=== PATIENT | male | born 1970 | race Caucasian/White ===

== ENCOUNTER → 2016-10-26 | Outpatient (CLI) | payer OTHER ==
--- NOTE | 2016-10-26 08:56 | US ---
EXAMINATION TYPE: US abdomen complete DATE OF EXAM: 10/26/2016 COMPARISON: NONE CLINICAL HISTORY: R10.84 Generalized abdominal pain. Elevated LFT's EXAM MEASUREMENTS: Liver Length: 19.2 cm Gallbladder Wall: 0.3 cm CBD: 0.4 cm Spleen: 10.6 cm Right Kidney: 10.1 x 4.6 x 5.9 cm Left Kidney: 11.3 x 5.2 x 6.2 cm Pancreas: unable to view due to bowel gas Liver: difficult to penetrate and enlarged . Hyperechoic echotexture of the hepatic parenchyma seen diffusely, which limits evaluation for underlying masses. Gallbladder: wnl Evidence for sonographic Weaver's sign: no CBD: wnl Spleen: wnl Right Kidney: wnl Left Kidney: wnl Upper IVC: wnl Abd Aorta: limited views appear wnl The intrahepatic portion of the IVC and proximal abdominal aorta are within normal limits. There is no evidence of cholelithiasis. Common bile duct is unremarkable. The visualized portions of the gray creas are homogenous. The spleen is unremarkable. Kidneys are symmetric and free of hydronephrosis. No renal lesions are seen. IMPRESSION: 1. Diffuse hyperechoic hepatic echotexture, most commonly relating to underlying hepatic steatosis al though this can be seen in other hepatocellular disease. Correlation with serum laboratory values is recommended. 2. Nonvisualization the pancreas due to overlying bowel gas.
== END | disposition home or self-care (01) ==
LOC: RADUSWWP 07:42
PROVIDERS: ATTEND Family Medicine
DX: K76.89 Other specified diseases of liver (principal); R10.84 Generalized abdominal pain
CPT/HCPCS: 76700

== ENCOUNTER → 2023-11-05 | Outpatient (CLI) | payer OTHER ==
[2023-11-05 16:39] LABS: Basophils # (A) 0.04 X 10*3/uL (0.00-0.10); Basophils % (A) 0.7 %; Eosinophils # (A) 0.32 X 10*3/uL (0.04-0.35); Eosinophils % (A) 5.9 %; HCT 43.6 % (39.6-50.0); HGB 15.1 g/dL (13.0-17.0); Lymphocytes # (A) 1.78 X 10*3/uL (0.90-5.00); MCH 29.8 pg (27.0-32.0); MCHC 34.6 g/dL (32.0-37.0); MCV 86.2 FL (80.0-97.0); Mean Platelet Volume 10.3 FL (9.5-12.2); Monocytes # (A) 0.51 X 10*3/uL (0.20-1.00); Monocytes % (A) 9.4 %; NRBC Per 100 WBC 0 X 10*3/uL (0.00-0.01); Neutrophils # (A) 2.74 X 10*3/uL (1.80-7.70); Neutrophils % (A) 50.8 %; Platelet Count 158 X 10*3/uL (140-440); RBC 5.06 X 10*6/uL (4.40-5.60); RDW 12.6 % (11.5-14.5)
[2023-11-05 17:21] LABS: ALT 62 U/L (10-49); AST 51 U/L (14-35); Albumin 4.4 g/dL (3.8-4.9); Albumin/Globulin Ratio 1.76 Ratio (1.60-3.17); Alkaline Phosphatase 81 U/L (41-126); Calcium 9.5 mg/dL (8.7-10.3); Chloride 104 mmol/L (96-109); Globulin 2.5 g/dL (1.6-3.3); Glucose 149 mg/dL (70-110); LDL Cholesterol,Calculated 78.5 mg/dL (0.0-131.0); Potassium 4.1 mmol/L (3.5-5.5); Prostate Specific Antigen 0.34 ng/mL (0.000-3.500); Sodium 141 mmol/L (135-145); Total Bilirubin 1.3 mg/dL (0.3-1.2); Total Protein 6.9 g/dL (6.2-8.2); Uric Acid 7.7 mg/dL (3.7-8.7)
== END | disposition home or self-care (01) ==
LOC: LABWHC1 09:19
PROVIDERS: ATTEND Family Medicine
DX: I10 Essential (primary) hypertension (principal); M1A.9XX0 Chronic gout, unspecified, without tophus (tophi); E03.9 Hypothyroidism, unspecified; F33.1 Major depressive disorder, recurrent, moderate; Z12.5 Encounter for screening for malignant neoplasm of prostate; R73.09 Other abnormal glucose; K76.0 Fatty (change of) liver, not elsewhere classified
CPT/HCPCS: 36415; 80053; 80061; 84153; 84443; 84550; 85025

== ENCOUNTER → 2024-04-21 | Outpatient (CLI) | payer OTHER ==
--- NOTE | 2024-04-21 12:53 | XR ---
EXAMINATION TYPE: XR chest 2V DATE OF EXAM: 04/21/2024 12:43 PM COMPARISON: None. CLINICAL INDICATION: Male, 53 years old with history of R05.9 Cough R06.02 SOB, TECHNIQUE: XR chest 2V view(s) obtained. FINDINGS: The heart size is normal. The pulmonary vasculature is normal. The lungs are clear. IMPRESSION: 1. No acute pulmonary process. [facility], , 04/21/2024 12:51 PM
== END | disposition home or self-care (01) ==
LOC: RADXRMAIN 12:32
PROVIDERS: ATTEND Family Medicine
DX: R06.02 Shortness of breath (principal); R05.9 Cough, unspecified
CPT/HCPCS: 71046

== ENCOUNTER → 2024-07-13 | Outpatient (CLI) | payer OTHER ==
[2024-07-14 03:00] LABS: Albumin 4.6 g/dL (3.8-4.9); Albumin/Globulin Ratio 1.84 Ratio (1.60-3.17); Bilirubin, Conjugated 0.47 mg/dL (0.20-0.40); Bilirubin,Unconjugated 0.63 mg/dL (0.20-1.00); Globulin 2.5 g/dL (1.6-3.3); Total Bilirubin 1.1 mg/dL (0.3-1.2); Total Protein 7.1 g/dL (6.2-8.2)
== END | disposition home or self-care (01) ==
LOC: LABWHC1 14:39
PROVIDERS: ATTEND Family Medicine
DX: E66.01 Morbid (severe) obesity due to excess calories (principal)
CPT/HCPCS: 36415; 80076